=== PATIENT | male | born 1970 | race Caucasian/White ===

== ENCOUNTER 2019-11-04 10:33 | Emergency (ER) | payer BC ==
[~2019-11-04] VITALS: Ht 177.8 cm; Wt 104.3 kg
[2019-11-04 11:24] LABS: ABSOLUTE NEUTROPHILS 4.2 thou/uL (1.4-8.2); EOSINOPHILS 1.7 % (0.0-3.0); HEMATOCRIT 43.8 % (42.0-52.0); HEMOGLOBIN 14.9 gm/dL (14.0-18.0); LYMPHOCYTES 25.2 % (24.0-44.0); MCV 85.2 fL (80.0-100.0); MONOCYTES 9.3 % (1.0-8.0); POLYS 62.8 % (36.0-66.0); RBC 5.14 mil/uL (4.50-6.00); RDW 12.9 % (10.5-14.5); WBC 6.8 thou/uL (4.0-11.0)
[2019-11-04 11:37] LABS: ANION GAP 3 mmol/L (7-16); BUN 15 mg/dL (7-18); CALCIUM 9.2 mg/dL (8.5-10.1); CHLORIDE 102 mmol/L (98-107); CO2 31 mmol/L (21-32); GLUCOSE 98 mg/dL (74-106); POTASSIUM 4.2 mmol/L (3.5-5.1); SODIUM 136 mmol/L (136-145)
[2019-11-04 11:46] LABS: TROPONIN-I <0.06 ng/mL (<0.06)
[2019-11-04] MEDS ORDERED: OMEPRAZOLE20 M2 PO (12:01)
[2019-11-04] MEDS ORDERED: PROZAC20 M1 PO (12:01)
[2019-11-04 12:24] LABS: PLATELET COUNT 152 thou/uL (150-400); PLATELET ESTIMATE NORMAL
[2019-11-04] MEDS ORDERED: LOSARTAN-HCTZ1 EACH PO (13:46)
[2019-11-04 14:24] VITALS: BP 137/92
--- NOTE | 2019-11-05 07:51 | EKG ---
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 11/05/19 0750 [id number] [id number] Emiliano Cat MD, [facility] /EPI
== END 2019-11-04 14:24 | disposition home or self-care (01) ==
LOC: ER 10:33
PROVIDERS: Emergency Medicine
DX: R07.89 Other chest pain (principal); I10 Essential (primary) hypertension; Z79.82 Long term (current) use of aspirin

== ENCOUNTER → 2020-02-03 | Outpatient (CLI) | payer BC ==
[~2020-02-03] MED LIST: LOSARTAN-HCTZ1 EACH PO; OMEPRAZOLE20 M2 PO; PROZAC20 M1 PO
== END ==
LOC: SJCVCIMAG 07:42
PROVIDERS: ATTEND Internal Medicine Cardiovascular Disease
DX: I11.9 Hypertensive heart disease without heart failure (principal); R00.1 Bradycardia, unspecified; I48.0 Paroxysmal atrial fibrillation; K21.9 Gastro-esophageal reflux disease without esophagitis; Z79.899 Other long term (current) drug therapy

== ENCOUNTER → 2020-02-11 | Outpatient (CLI) | payer OTHER | LOC: CAT 09:27 | PROVIDERS: ATTEND Internal Medicine Cardiovascular Disease | DX: Z13.6 Encounter for screening for cardiovascular disorders (principal); I25.10 Atherosclerotic heart disease of native coronary artery without angina pectoris; E78.00 Pure hypercholesterolemia, unspecified ==

== ENCOUNTER → 2020-02-17 | Outpatient (CLI) | payer BC | LOC: SJCVCIMAG 02-11 09:12 | PROVIDERS: ATTEND Internal Medicine Cardiovascular Disease | DX: I48.0 Paroxysmal atrial fibrillation (principal); R00.2 Palpitations; R07.9 Chest pain, unspecified ==

== ENCOUNTER → 2020-03-03 | Outpatient (CLI) | payer BC | LOC: SJCVCIMAG 07:46 | PROVIDERS: ATTEND Internal Medicine Cardiovascular Disease | DX: I48.91 Unspecified atrial fibrillation (principal); R06.00 Dyspnea, unspecified; R07.9 Chest pain, unspecified; R00.2 Palpitations; R53.83 Other fatigue; K21.9 Gastro-esophageal reflux disease without esophagitis ==